=== PATIENT | male | born 1955 | race Caucasian/White ===

== ENCOUNTER → 2020-01-02 | Outpatient (CLI) | payer BC ==
[~2020-01-02] MED LIST: OMEPRAZOLE40 MG PO; SYNTHROID125 MC1 PO
== END ==
LOC: M.LAB 14:41
PROVIDERS: ATTEND Internal Medicine Gastroenterology
DX: Z01.812 Encounter for preprocedural laboratory examination (principal); Z11.59 Encounter for screening for other viral diseases